=== PATIENT | male | born 1980 | race Caucasian/White ===

== ENCOUNTER 2017-03-29 07:30 | Observation (INO) | payer BC, OTHER ==
[2017-03-29] MEDS ORDERED: SODIUM CHLORIDE 0.9% 1,000 ML IV STA (07:45)
[2017-03-29] MEDS ORDERED: KETOROLAC 30 MG/ML 1 ML VIAL IVP STA ×2 (07:45→10:37)
[2017-03-29] MEDS ORDERED: ONDANSETRON 4 MG/2 ML VIAL IVP STA (07:45)
--- NOTE | 2017-03-29 07:49 | ED ---
Abdominal Pain HPI - General Chief Complaint: Abdominal Pain Stated Complaint: abdominal pain Time Seen by Provider: 03/29/17 07:31 Source: patient, family, RN notes reviewed Mode of arrival: wheelchair Limitations: no limitations - History of Present Illness Initial Comments: This is a 36-year-old male with a prior history kidney stones who states he had the onset last evening around 11:49 PM of lower abdominal pain is very stabbing in nature very severe as bad as 10/10 severity associated with nausea. It has now more localized over to the right flank area. He points to the right lower quadrant and right upper quadrant and in between the areas. He gets somewhat worse with movement he's had nausea no vomiting no fevers chills or sweats no dysuria no hematuria no constipation diarrhea. There is a family history of gallbladder disease with respect to the patient's father. He states this feels different than his previous kidney stone. Pain does not radiate to his genitals. He's had no cough no phlegm production no other symptoms to report. The pain is currently 9/10 in severity. MD Complaint: abdominal pain, flank pain - Related Data Home Medications Medication Instructions Recorded Confirmed Cetirizine HCl [Zyrtec] 10 mg PO DAILY 07/31/14 03/29/17 Albuterol Inhaler [Ventolin Hfa 1 - 2 puff INHALATION RT-QID PRN 03/29/17 Inhaler] Fluticasone Nasal [place] [Flonase 1 spray EA NOSTRIL DAILY PRN 03/29/17 03/29/17 Nasal [place]] Omeprazole [PriLOSEC] 20 mg PO DAILY PRN 03/29/17 03/29/17 Allergies Allergy/AdvReac Type Severity Reaction Status Date / Time latex Allergy Rash/Hives Verified 03/29/17 08:03 Review of Systems ROS Statement: Those systems with pertinent positive or pertinent negative responses have been documented in the HPI. ROS Other: All systems not noted in ROS Statement are negative. Past Medical History Past Medical History: Asthma History of Any Multi-Drug Resistant Organisms: None Reported Past Surgical History: No Surgical Hx Reported Past Psychological History: No Psychological Hx Reported Smoking Status: Never smoker Past Alcohol Use History: Rare Past Drug Use History: None Reported General Exam - General Exam Comments Initial Comments: This is a well-developed well-nourished awake alert oriented 3 male Limitations: no limitations General appearance: alert, anxious, in distress Head exam: Present: atraumatic, normocephalic, normal inspection Eye exam: Present: normal appearance, PERRL, EOMI. Absent: scleral icterus, conjunctival injection, periorbital swelling ENT exam: Present: normal exam, mucous membranes moist Neck exam: Present: normal inspection. Absent: tenderness, meningismus, lymphadenopathy Respiratory exam: Present: normal lung sounds bilaterally. Absent: respiratory distress, wheezes, rales, rhonchi, stridor Cardiovascular Exam: Present: regular rate, normal rhythm, normal heart sounds. Absent: systolic murmur, diastolic murmur, rubs, gallop, clicks GI/Abdominal exam: Present: soft, tenderness (Mild right flank tenderness right upper quadrant tenderness. No guarding or rebound. No McBurney point tenderness at this time. No obturator or Rovsing sign no psoas sign.), normal bowel sounds. Absent: distended, guarding, rebound, rigid Rectal exam: Present: deferred exam: Present: normal inspection Extremities exam: Present: normal inspection, full ROM, normal capillary refill. Absent: tenderness, pedal edema, joint swelling, calf tenderness Back exam: Present: normal inspection, full ROM. Absent: CVA tenderness (R), CVA tenderness (L) Neurological exam: Present: alert, oriented X3, CN II-XII intact Psychiatric exam: Present: normal affect, normal mood Skin exam: Present: warm, dry, intact, normal color. Absent: rash Course Vital Signs 03/29/17 03/29/17 07:32 10:39 Temperature 98.7 F 98.0 F Pulse Rate 80 67 Respiratory 18 16 Rate Blood Pressure 126/68 119/60 O2 Sat by Pulse 99 98 Oximetry - Reevaluation(s) Reevaluation #1: 03/29/17 08:32 Patient is getting some pain relief he still is tender in the right upper quadrant right flank area to palpation no guarding no right lower quadrant tenderness and no CVA tenderness at this time. Ultrasound will be ordered. Patient does relate problems with eating certain foods such as Doritos Medical Decision Making - Medical Decision Making I did discuss findings with the patient initially the presentation was not typical with respect to appendicitis he still does not have McBurney point tenderness. CAT scan is positive hour for appendicitis. I did discuss findings with him and with the surgeon on-call Dr. Alexander who did come to see the patient in the emergency department. Patient will be admitted for a laparoscopic appendectomy. - Lab Data Result diagrams: 03/29/17 07:50 03/29/17 07:50 Lab Results 03/29/17 03/29/17 03/29/17 Range/Units 07:50 07:50 07:50 WBC 12.9 H (3.8-10.6) k/uL RBC 5.15 (4.30-5.90) m/uL Hgb 15.8 (13.0-17.5) gm/dL Hct 43.2 (39.0-53.0) % MCV 83.8 (80.0-100.0) fL MCH 30.7 (25.0-35.0) pg MCHC 36.6 (31.0-37.0) g/dL RDW 13.1 (11.5-15.5) % Plt Count 253 (150-450) k/uL Neutrophils % 82 % Lymphocytes % 11 % Monocytes % 4 % Eosinophils % 1 % Basophils % 0 % Neutrophils # 10.6 H (1.3-7.7) k/uL Lymphocytes # 1.5 (1.0-4.8) k/uL Monocytes # 0.5 (0-1.0) k/uL Eosinophils # 0.1 (0-0.7) k/uL Basophils # 0.0 (0-0.2) k/uL Sodium 142 (137-145) mmol/L Potassium 4.1 (3.5-5.1) mmol/L Chloride 102 (98-107) mmol/L Carbon Dioxide 29 (22-30) mmol/L Anion Gap 11 mmol/L BUN 16 (9-20) mg/dL Creatinine 0.83 (0.66-1.25) mg/dL Est GFR (MDRD) Af Amer >60 (>60 ml/min/1.73 sqM) Est GFR (MDRD) Non-Af >60 (>60 ml/min/1.73 sqM) Glucose 136 H (74-99) mg/dL Calcium 9.6 (8.4-10.2) mg/dL Total Bilirubin 0.6 (0.2-1.3) mg/dL AST 25 (17-59) U/L ALT 39 (21-72) U/L Alkaline Phosphatase 66 (38-126) U/L Total Protein 7.4 (6.3-8.2) g/dL Albumin 4.5 (3.5-5.0) g/dL Amylase 41 (30-110) U/L Lipase 61 (23-300) U/L Urine Color Light Yellow Urine Appearance Cloudy (Clear) Urine pH 8.0 (5.0-8.0) Ur Specific [place] 1.014 (1.001-1.035) Urine Protein Negative (Negative) Urine Glucose (UA) Negative (Negative) Urine Ketones Negative (Negative) Urine Blood Negative (Negative) Urine Nitrite Negative (Negative) Urine Bilirubin Negative (Negative) Urine Urobilinogen <2.0 (<2.0) mg/dL Ur Leukocyte Esterase Negative (Negative) Amorphous Sediment Moderate H (None) /hpf - Radiology Data Radiology results: report reviewed (I did review the imaging and reports ultrasound her nondiagnostic the patient was reevaluated and did have a CAT scan showing acute appendicitis.), image reviewed Disposition Clinical Impression: Acute abdomen, Acute appendicitis Disposition: ADMITTED IP TO THIS [facility] Condition: Stable Referrals: None,Stated [Primary Care Provider] - 1-2 days
[2017-03-29 08:10] LABS: Basophils % (A) 0 %; CH 30.3; CHCM 36.3; Eosinophils # (A) 0.1 k/uL (0-0.7); Eosinophils % (A) 1 %; HCT 43.2 % (39.0-53.0); HDW 2.69; HGB 15.8 gm/dL (13.0-17.5); Luc # (Auto) 0.24; Luc % (Auto) 2; Lymphocytes # (A) 1.5 k/uL (1.0-4.8); Lymphocytes % (A) 11 %; MCH 30.7 pg (25.0-35.0); MCHC 36.6 g/dL (31.0-37.0); MCV 83.8 fL (80.0-100.0); Mean Platelet Volume 7.6; Monocytes # (A) 0.5 k/uL (0-1.0); Monocytes % (A) 4 %; Neutrophils # (A) 10.6 k/uL (1.3-7.7); Neutrophils % (A) 82 %; RBC 5.15 m/uL (4.30-5.90); RDW 13.1 % (11.5-15.5); WBC 12.9 k/uL (3.8-10.6); WBC (Perox) 11.95
[2017-03-29 08:18] LABS: Amorphous Sediment,Urine Moderate /hpf; Appearance,Urine Cloudy (Clear); Bilirubin,Urine Negative (Negative); Glucose,Urine (UA) Negative (Negative); Ketones,Urine Negative (Negative); Leukocyte Esterase,Urine Negative (Negative); Nitrite,Urine Negative (Negative); Particle Count 19474; Protein,Urine Negative (Negative); Specific Gravity,Urine 1.014 (1.001-1.035); UA Billing (MACRO vs. MICRO) MICRO; Urobilinogen,Urine <2.0 mg/dL (<2.0)
--- NOTE | 2017-03-29 08:18 | XR ---
EXAMINATION TYPE: XR KUB DATE OF EXAM: 03/29/2017 CLINICAL DATA: 36-year-old male with right-sided abdominal pain, PHH COMPARISON: None FINDINGS: Lung bases are clear. No evidence for free intraperitoneal air. No dilated small bowel or air-fluid levels. Scattered air and stool seen throughout the colon extendi ng distally into the rectum. Mild stool burden. No suspicious calcifications identified. IMPRESSION: 1. Mild stool burden. 2.No evidence of bowel obstruction or free intraperitoneal air.
[2017-03-29 08:32] LABS: ALT 39 U/L (21-72); AST 25 U/L (17-59); Alkaline Phosphatase 66 U/L (38-126); Amylase 41 U/L (30-110); Anion Gap 11 mmol/L; Blood Urea Nitrogen 16 mg/dL (9-20); Calcium 9.6 mg/dL (8.4-10.2); Carbon Dioxide 29 mmol/L (22-30); Chloride 102 mmol/L (98-107); Glucose 136 mg/dL (74-99); Non-African American GFR(MDRD) >60 (>60 ml/min/1.73 sqM); Potassium 4.1 mmol/L (3.5-5.1); Sodium 142 mmol/L (137-145); Total Bilirubin 0.6 mg/dL (0.2-1.3); Total Protein 7.4 g/dL (6.3-8.2)
--- NOTE | 2017-03-29 11:16 | US ---
EXAMINATION TYPE: US abd limited kidneys/bladder DATE OF EXAM: 03/29/2017 COMPARISON: NONE CLINICAL HISTORY: Pain. EC patient with Right lateral abdomen pain x 9 hours. Ate sausage at 1 am. HX of prior right renal stone that patient stated he passed. EXAM MEASUREMENTS: Liver Length: 12.5 cm Gallbladder Wall: 0.1 cm CBD: 0.3 cm Right Kidney: 11.1 x 5.5 x 4.7 cm Left Kidney: 10.0 x 5.4 x 4.9 cm Pancreas: Obscured by bowel gas Liver: There is no evident mass. Gallbladder: wnl CBD: wnl Right Kidney: wnl Left Kidney: wnl Bladder: wnl Bilateral Jets Seen Yes There is no ascites. The kidneys are morphologically normal, cortical medullary differentiation is maintained. Bilateral u reteral jets are present. IMPRESSION: Limited exam. No significant abnormalities evident.
--- NOTE | 2017-03-29 12:14 | CT ---
EXAMINATION TYPE: CT abdomen pelvis wo con DATE OF EXAM: 03/29/2017 COMPARISON: Ultrasound same date HISTORY: Rt sided pain CT DLP: 327.6 mGycm Automated exposure control for dose reduction was used. TECHNIQUE: Helical acquisition of images from the lung bases through the pelvis. FINDINGS: LUNG BASES: No significant abnormality is appreciated. AORTA: No significant abnormality is appreciated. LIVER/GB: No significant abnormality is appreciated. PANCREAS: No significant abnormality is seen. SPLEEN: Calcifications present likely indicative of granulomas. ADRENALS: No significant abnormality is seen. KIDNEYS: Punctate nonobstructive calculus present in the midpole the left kidney. No hydronephrosis b ilaterally. REPRODUCTIVE ORGANS: No significant abnormality is seen. URINARY BLADDER: No significant abnormality is seen. BOWEL: There is abnormal thickening of the appendix. Periappendiceal inflammatory changes present. T here is luminal high attenuation compatible with appendicolith. FREE AIR: No Free Air is visible. ASCITES: None visible. PELVIC ADENOPATHY: None visualized. RETROPERITONEAL ADENOPATHY: No Retroperitoneal Adenopathy visible. OSSEOUS STRUCTURES: No significant abnormality is seen. IMPRESSION: FINDINGS COMPATIBLE WITH ACUTE APPENDICITIS.
--- NOTE | 2017-03-29 12:59 | P.GSHP ---
History of Present Illness H&P Date: 03/29/17 CHIEF COMPLAINT: Right lower quadrant abdominal pain with appendicitis for for over 12 hrs. HISTORY OF PRESENT ILLNESS: The patient is a previously healthy 36-year-old male who presents over 12 hr day history of right lower quadrant abdominal pain that started last night. He states the intensity of the pain is mild to moderate. He presented with elevated WBC with studies consistent with appendicitis hence general surgery consultation. PAST MEDICAL HISTORY: Denies Severe post-op nausea PAST SURGICAL HISTORY: See list. CURRENT MEDICATIONS: See list. ALLERGIES: See list. SOCIAL HISTORY: Social alcohool use.Tobacco use. FAMILY HISTORY: Denies Crohns disease and ulcerative colitis. REVIEW OF ORGAN SYSTEMS: CONSTITUTIONAL: Denies any fever or chills. Denies recent weight loss. HEENT: Denies any trouble with vision, hearing or nosebleeds. No difficulty swallowing. LYMPHATIC: The patient denies any lumps and bumps around the neck. ENDOCRINE: Denies any thyroid disorders. Denies any blood sugar glucose intolerance. RESPIRATORY: Denies shortness of breath including chronic cough. CARDIOVASCULAR: Denies history of chest pain with exertion. GASTROINTESTINAL: Denies regurgitation of bile at night as well as intermittent nausea. No blood in stools. GENITOURINARY: Denies any blood in urine or increased urinary frequency. MUSCULOSKELETAL: Denies current joint arthritis. NEUROLOGIC: Denies any numbness or tingling along the distal extremities. No seizure disorders or headaches. PSYCHIATRIC: Denies any depression or suicidal ideation. HEMATOLOGIC: Denies any abnormal bleeding or bruising. PHYSICAL EXAMINATION: Vital signs: Vital Signs Temp 98.0 F 03/29/17 10:39 Pulse 67 03/29/17 10:39 Resp 16 03/29/17 10:39 BP 119/60 03/29/17 10:39 Pulse Ox 98 03/29/17 10:39 Intake & Output 03/28/17 03/29/17 03/29/17 18:59 06:59 18:59 Weight 76.204 kg GENERAL: Well developed and in no acute distress. Pleasant. HEENT: No sclera icterus. Extraocular movements grossly intact. Moist buccal mucosa. Head is atraumatic, normocephalic. Hears conversational speech. No nasal drainage. NECK: Supple without lymphadenopathy. No JV distention. CHEST: Non-labored respirations and equal bilateral excursions. CARDIOVASCULAR: Regular rate and rhythm. Palpable 2+ radial pulses. ABDOMEN: Soft, tender at the right lower quadrant without guarding. MUSCULOSKELETAL: No clubbing, cyanosis or edema. NEUROLOGIC: No focal or lateralizing signs. PSYCH: Appropriate affect. Alert and oriented to person, place and time. LABS: Laboratory Last Values WBC 12.9 k/uL (3.8-10.6) H 03/29/17 07:50 RBC 5.15 m/uL (4.30-5.90) 03/29/17 07:50 Hgb 15.8 gm/dL (13.0-17.5) 03/29/17 07:50 Hct 43.2 % (39.0-53.0) 03/29/17 07:50 MCV 83.8 fL (80.0-100.0) 03/29/17 07:50 MCH 30.7 pg (25.0-35.0) 03/29/17 07:50 MCHC 36.6 g/dL (31.0-37.0) 03/29/17 07:50 RDW 13.1 % (11.5-15.5) 03/29/17 07:50 Plt Count 253 k/uL (150-450) 03/29/17 07:50 Neutrophils % 82 % 03/29/17 07:50 Lymphocytes % 11 % 03/29/17 07:50 Monocytes % 4 % 03/29/17 07:50 Eosinophils % 1 % 03/29/17 07:50 Basophils % 0 % 03/29/17 07:50 Neutrophils # 10.6 k/uL (1.3-7.7) H 03/29/17 07:50 Lymphocytes # 1.5 k/uL (1.0-4.8) 03/29/17 07:50 Monocytes # 0.5 k/uL (0-1.0) 03/29/17 07:50 Eosinophils # 0.1 k/uL (0-0.7) 03/29/17 07:50 Basophils # 0.0 k/uL (0-0.2) 03/29/17 07:50 Sodium 142 mmol/L (137-145) 03/29/17 07:50 Potassium 4.1 mmol/L (3.5-5.1) 03/29/17 07:50 Chloride 102 mmol/L (98-107) 03/29/17 07:50 Carbon Dioxide 29 mmol/L (22-30) 03/29/17 07:50 Anion Gap 11 mmol/L 03/29/17 07:50 BUN 16 mg/dL (9-20) 03/29/17 07:50 Creatinine 0.83 mg/dL (0.66-1.25) 03/29/17 07:50 Est GFR (MDRD) Af Amer >60 (>60 ml/min/1.73 sqM) 03/29/17 07:50 Est GFR (MDRD) Non-Af >60 (>60 ml/min/1.73 sqM) 03/29/17 07:50 Glucose 136 mg/dL (74-99) H 03/29/17 07:50 Calcium 9.6 mg/dL (8.4-10.2) 03/29/17 07:50 Total Bilirubin 0.6 mg/dL (0.2-1.3) 03/29/17 07:50 AST 25 U/L (17-59) 03/29/17 07:50 ALT 39 U/L (21-72) 03/29/17 07:50 Alkaline Phosphatase 66 U/L (38-126) 03/29/17 07:50 Total Protein 7.4 g/dL (6.3-8.2) 03/29/17 07:50 Albumin 4.5 g/dL (3.5-5.0) 03/29/17 07:50 Amylase 41 U/L (30-110) 03/29/17 07:50 Lipase 61 U/L (23-300) 03/29/17 07:50 Urine Color Light Yellow 03/29/17 07:50 Urine Appearance Cloudy (Clear) 03/29/17 07:50 Urine pH 8.0 (5.0-8.0) 03/29/17 07:50 Ur Specific [place] 1.014 (1.001-1.035) 03/29/17 07:50 Urine Protein Negative (Negative) 03/29/17 07:50 Urine Glucose (UA) Negative (Negative) 03/29/17 07:50 Urine Ketones Negative (Negative) 03/29/17 07:50 Urine Blood Negative (Negative) 03/29/17 07:50 Urine Nitrite Negative (Negative) 03/29/17 07:50 Urine Bilirubin Negative (Negative) 03/29/17 07:50 Urine Urobilinogen <2.0 mg/dL (<2.0) 03/29/17 07:50 Ur Leukocyte Esterase Negative (Negative) 03/29/17 07:50 Amorphous Sediment Moderate /hpf (None) H 03/29/17 07:50 STUDIES: CT of the abdomen and pelvis reviewed with findings consistent with appendicitis. ASSESSMENT: 1. Right lower quadrant pain. 2. Appendicitis. 3. Leukocytosis. 4. Family history gallbladder disease. PLAN: 1. I have discussed benefits and risks of laparoscopic appendectomy. 2. He has a family history of gallbladder disease which we will monitor. 3. Antibiotics. 4. DVT prophylaxis with heparin. 5. GI prophylaxis. 6. Off work restrictions and recovery anticipated for 1 weeks. Thank you very much for allowing me to participate in the care of your patient. Past Medical History Past Medical History: Asthma History of Any Multi-Drug Resistant Organisms: None Reported Past Surgical History: No Surgical Hx Reported Past Psychological History: No Psychological Hx Reported Smoking Status: Never smoker Past Alcohol Use History: Rare Past Drug Use History: None Reported Medications and Allergies Home Medications Medication Instructions Recorded Confirmed Type Cetirizine HCl [Zyrtec] 10 mg PO DAILY 07/31/14 03/29/17 History Albuterol Inhaler [Ventolin Hfa 1 - 2 puff INHALATION RT-QID PRN 03/29/17 History Inhaler] Fluticasone Nasal [place] [Flonase 1 spray EA NOSTRIL DAILY PRN 03/29/17 03/29/17 History Nasal [place]] Omeprazole [PriLOSEC] 20 mg PO DAILY PRN 03/29/17 03/29/17 History Allergies Allergy/AdvReac Type Severity Reaction Status Date / Time latex Allergy Rash/Hives Verified 03/29/17 08:03 Surgical - Exam Vital Signs Temp Pulse Resp BP Pulse Ox 98.7 F 80 18 126/68 99 03/29/17 07:32 03/29/17 07:32 03/29/17 07:32 03/29/17 07:32 03/29/17 07:32 Results - Labs 03/29/17 07:50 03/29/17 07:50 Abnormal Lab Results - Last 24 Hours (Table) 03/29/17 03/29/17 03/29/17 Range/Units 07:50 07:50 07:50 WBC 12.9 H (3.8-10.6) k/uL Neutrophils # 10.6 H (1.3-7.7) k/uL Glucose 136 H (74-99) mg/dL Amorphous Sediment Moderate H (None) /hpf Diabetes panel 03/29/17 Range/Units 07:50 Sodium 142 (137-145) mmol/L Potassium 4.1 (3.5-5.1) mmol/L Chloride 102 (98-107) mmol/L Carbon Dioxide 29 (22-30) mmol/L BUN 16 (9-20) mg/dL Creatinine 0.83 (0.66-1.25) mg/dL Glucose 136 H (74-99) mg/dL Calcium 9.6 (8.4-10.2) mg/dL AST 25 (17-59) U/L ALT 39 (21-72) U/L Alkaline Phosphatase 66 (38-126) U/L Total Protein 7.4 (6.3-8.2) g/dL Albumin 4.5 (3.5-5.0) g/dL Calcium panel 03/29/17 Range/Units 07:50 Calcium 9.6 (8.4-10.2) mg/dL Albumin 4.5 (3.5-5.0) g/dL Pituitary panel 03/29/17 Range/Units 07:50 Sodium 142 (137-145) mmol/L Potassium 4.1 (3.5-5.1) mmol/L Chloride 102 (98-107) mmol/L Carbon Dioxide 29 (22-30) mmol/L BUN 16 (9-20) mg/dL Creatinine 0.83 (0.66-1.25) mg/dL Glucose 136 H (74-99) mg/dL Calcium 9.6 (8.4-10.2) mg/dL Adrenal panel 03/29/17 Range/Units 07:50 Sodium 142 (137-145) mmol/L Potassium 4.1 (3.5-5.1) mmol/L Chloride 102 (98-107) mmol/L Carbon Dioxide 29 (22-30) mmol/L BUN 16 (9-20) mg/dL Creatinine 0.83 (0.66-1.25) mg/dL Glucose 136 H (74-99) mg/dL Calcium 9.6 (8.4-10.2) mg/dL Total Bilirubin 0.6 (0.2-1.3) mg/dL AST 25 (17-59) U/L ALT 39 (21-72) U/L Alkaline Phosphatase 66 (38-126) U/L Total Protein 7.4 (6.3-8.2) g/dL Albumin 4.5 (3.5-5.0) g/dL
[2017-03-29] MEDS ORDERED: HYDROmorphone 1 MG/ML 1 ML SYRINGE IVP STA (13:48)
[2017-03-29] MEDS ORDERED: ceFAZolin 2 GM in SODIUM CHLORIDE 0.9% 100 ML IVPB ONE (18:31)
[2017-03-29] MEDS ORDERED: ACETAMINOPHEN IV (For NPO) 1,000 MG in EMPTY BAG 1 BAG IVPB STA (18:31)
--- NOTE | 2017-03-29 18:31 | P.HPADDEND ---
H&P Addendum H&P Addendum Date: 03/29/17 Family is at bedside. Patient had additional concerns regarding inflating of the abdomen and shoulder pain. All of his questions were addressed. We'll proceed with laparoscopic appendectomy.
[2017-03-29] MEDS ORDERED: HYDROmorphone 1 MG/ML 1 ML SYRINGE IVP PRN (18:32)
[2017-03-29] MEDS ORDERED: ONDANSETRON 4 MG/2 ML VIAL IVP PRN (18:32)
[2017-03-29] MEDS ORDERED: HEPARIN SODIUM,PORCINE 5,000 UNIT/ML 1 ML VIAL SQ STA (18:33)
[2017-03-29] MEDS ORDERED: GLYCOPYRROLATE 0.2 MG/ML 2 ML VIAL ONE (18:45)
[2017-03-29] MEDS ORDERED: MIDAZOLAM 2 MG/2 ML VIAL ONE (18:45)
[2017-03-29] MEDS ORDERED: NEOSTIGMINE 1 MG/ML 10 ML VIAL ONE (18:45)
[2017-03-29] MEDS ORDERED: IV FLUID CONTINUATION 1,000 ML IV ONE (18:45)
[2017-03-29] MEDS ORDERED: LIDOCAINE 1% INJ 10MG/ML (20 ML MDV) ONE (18:45)
[2017-03-29] MEDS ORDERED: ONDANSETRON 4 MG/2 ML VIAL ONE (18:45)
[2017-03-29] MEDS ORDERED: fentaNYL (PF) 50 MCG/ML 2 ML AMP ONE (18:45)
[2017-03-29] MEDS ORDERED: SUCCINYLCHOLINE CHLORIDE 100 MG/5 ML SYR IV ONE (18:45)
[2017-03-29] MEDS ORDERED: ROCURONIUM BROMIDE 10 MG/ML 10 ML VIAL IV ONE (18:45)
[2017-03-29] MEDS ORDERED: HYDROmorphone (PF) 1 MG/ML ONE (18:45)
[2017-03-29] MEDS ORDERED: PROPOFOL 10 MG/ML 20 ML VIAL IV ONE (18:45)
[2017-03-29] MEDS ORDERED: BUPIVACAIN-EPI 0.25%-1:200,000 30 ML VIAL SQ ONE ×2 (18:50→19:10)
[2017-03-29] MEDS ORDERED: BUPIVACAIN-EPI 0.5%-1:200,000 30 ML VIAL SQ ONE (19:53)
--- NOTE | 2017-03-29 20:19 | P.OP ---
Date of Procedure: 03/29/17 Preoperative Diagnosis: Postoperative Diagnosis: Procedure(s) Performed: Implants: Indications for Procedure: Operative Findings: Description of Procedure: SURGEON: QUAN ARTHUR MD ELECTRIC TRAIN DRIVER: None. PREOPERATIVE DIAGNOSES: 1. Right lower quadrant abdominal pain. 2. Acute appendicitis. 3. Leukocytosis. POSTOPERATIVE DIAGNOSES: 1. Right lower quadrant abdominal pain. 2. Acute appendicitis. 3. Leukocytosis. 4. Retrocecal acute appendicitis with periappendicitis, without rupture. PROCEDURES PERFORMED: 1. Diagnostic laparoscopy. 2. Laparoscopic appendectomy. ANESTHESIA: General with 30 mL 0.50% Marcaine with epinephrine. ESTIMATED BLOOD LOSS: 20 mL. SPECIMENS REMOVED: Appendix. COMPLICATIONS: None. OPERATIVE FINDINGS: 1. Acute appendicitis with periappendicitis affecting mental distal appendix without rupture. 2. Unremarkable small bowel and terminal ileum. 3. Liver unremarkable. 4. The colon was unremarkable 5. Gallbladder unremarkable. 6. Retrocecal appendix coiled to the right upper quadrant and right lower quadrant. INDICATIONS: The patient is a 36-year-old male who presents with less than a 24-hour history of right lower quadrant abdominal pain. He reported nausea, including anorexia. He had studies consistent with with acute appendicitis. Benefits and risks, including possibility of open technique were described at length. Informed consent was obtained. DESCRIPTION OR PROCEDURE: Patient was brought to the operating room, laid in supine position. After general induction, the abdomen was prepped and draped in standard sterile fashion. Prior to incision, a timeout protocol was confirmed with surgical team regarding patient's name including procedure to be performed. Preoperative medications were given intraoperatively. Additionally, bilateral SCDs including heparin 5000 units was administered. A transverse infraumbilical incision was made after localizing the skin with anesthetic. A 0 degree 12 mm laparoscopic trocar entry was performed and entered into the peritoneal cavity. The abdomen was insufflated to 15 mmHg of pressure, which he tolerated well. Diagnostic laparoscopy demonstrated no injury to bowel, viscera or mesentery. Additionally, along the pelvis was free fluid with mild turbidity. A 5 mm port was placed just above the pubis. A separate 5 mm port was placed at the left upper quadrant all under direct visualization. The patient was placed in Trendelenburg position with the right side up. A systematic view within the abdominal cavity was started with the small bowel which was unremarkable. The gallbladder was unremarkable. The base of the cecum was without inflammation. The mid to distal appendix was dilated consistent with acute appendicitis including periappendicitis. Appendix was retrocecal initially ascending to the gallbladder and then coiling back into the right lower quadrant. Moderate dissection was performed to free the appendix from the right lower quadrant and advancing to the right flank. A 60 mm Endo SERGE echelon stapler was fired using a napier vascular load. A staple load was used for complete division of the base of the appendix. Mild arterial bleed was encountered and controlled using Sonicision A sponge was used to absorb all blood. The staple line was completely hemostatic. The specimen was removed from the abdominal cavity with a Endo Catch bag through the 12 mm trocar. All instruments and pneumoperitoneum were evacuated from the abdominal cavity. The fascial defect was reapproximated using 0 Vicryl in a figure-of-8 fashion. The size of the appendix was over 10 cm x 8 mm, quite large. A total of 30 mL 0.50 % Marcaine with epinephrine was infiltrated in all wounds for postop analgesia. Dermabond was applied to the skin after reapproximating the incisions with 4-0 Monocryl as described. At the end of the procedure, needle, sponge, and instrument count was verified correct by account technician. The patient had tolerated the procedure well, was taken to the postanesthesia care unit in stable condition. Intraoperative abdominal films were reviewed with the patient's family.
[2017-03-29] MEDS ORDERED: HYDROcodone/APAP 5-325MG 1 EACH TAB PO PRN (20:31)
[2017-03-29] MEDS ORDERED: NALOXONE 0.4 MG/ML 1 ML VIAL IV PRN (20:31)
[2017-03-29] MEDS: HYDROmorphone 1 MG/ML 1 ML SYRINGE IVP ONE ×2 (20:37→20:42)
[2017-03-29] MEDS ORDERED: METOCLOPRAMIDE 5 MG/ML 2 ML VIAL IVP ONE (20:54)
[2017-03-29] MEDS ORDERED: SODIUM CHLORIDE 0.9% 1,000 ML IV ONE (21:33)
[2017-03-30] MEDS: HEPARIN SODIUM,PORCINE 5,000 UNIT/ML 1 ML VIAL SQ SCH ×2 (00:35→08:44)
[2017-03-30] MEDS: KETOROLAC 30 MG/ML 1 ML VIAL IVP SCH ×3 (00:35→08:35)
[2017-03-30] MEDS: AMPICILLIN-SULBACTAM 3 GM in SODIUM CHLORIDE 0.9% 100 ML IVPB SCH ×2 (00:36→06:18)
[2017-03-30] MEDS: LORATADINE 10 MG TAB PO SCH ×2 (01:43→08:44)
[2017-03-30 05:59] VITALS: RESP 18
[2017-03-30 06:44] LABS: Basophils % (A) 0 %; CH 29.7; CHCM 34.7; Eosinophils % (A) 0 %; HCT 38.6 % (39.0-53.0); HDW 2.64; HGB 13.8 gm/dL (13.0-17.5); Luc # (Auto) 0.22; Luc % (Auto) 3; Lymphocytes % (A) 13 %; MCH 30.7 pg (25.0-35.0); MCHC 35.7 g/dL (31.0-37.0); MCV 86.1 fL (80.0-100.0); Monocytes # (A) 0.4 k/uL (0-1.0); Monocytes % (A) 4 %; Neutrophils # (A) 6.2 k/uL (1.3-7.7); Neutrophils % (A) 79 %; RBC 4.48 m/uL (4.30-5.90); RDW 12.9 % (11.5-15.5); WBC 7.9 k/uL (3.8-10.6); WBC (Perox) 8.05
[2017-03-30 07:39] VITALS: BP 126/71; PULSE 68; TEMP 98.3
[2017-03-30] MEDS ORDERED: NON-FORMULARY DRUG (Cetirizine Hcl [Zyrtec] 10 MG) PO SCH (09:00)
--- NOTE | 2017-04-01 13:07 | P.PN ---
Subjective Principal diagnosis: Acute appendicitis Patient doing wall. Pain is controlled. He denies any severe post-op nausea or vomiting. Objective - Vital Signs Vital signs: Vital Signs Temp 98.3 F 03/30/17 07:38 Pulse 68 03/30/17 08:00 Resp 18 03/30/17 08:00 BP 126/71 03/30/17 07:38 Pulse Ox 96 03/30/17 07:38 Intake & Output 03/29/17 03/30/17 03/30/17 18:59 06:59 18:59 Intake Total 500 500 Output Total 20 Balance 500 480 Weight 75.9 kg Intake: IV 500 500 Output: Estimated Blood Loss 20 Other: Voiding Method Toilet Urinal Urinal # Voids 1 1 - Exam GENERAL: Well developed and in no acute distress. Pleasant. HEENT: No sclera icterus. Extraocular movements grossly intact. Moist buccal mucosa. Head is atraumatic, normocephalic. Hears conversational speech. No nasal drainage. NECK: Supple without lymphadenopathy. No JV distention. CHEST: Non-labored respirations and equal bilateral excursions. CARDIOVASCULAR: Regular rate and rhythm. Palpable 2+ radial pulses. ABDOMEN: Soft, decreased right lower quadrant tenderness. Dressing, clean, dry and intact. NEUROLOGIC: No focal or lateralizing signs. PSYCH: Appropriate affect. Alert and oriented to person, place and time. - Labs CBC & Chem 7: 03/30/17 05:37 03/29/17 07:50 Labs: Abnormal Lab Results - Last 24 Hours (Table) 03/30/17 Range/Units 05:37 Hct 38.6 L (39.0-53.0) % Assessment and Plan (1) Leukocytosis Status: Acute (2) Asthma Status: Chronic (3) Right lower quadrant abdominal pain Status: Acute (4) Gastroesophageal reflux disease Status: Chronic (5) Acute abdomen Status: Acute (6) Acute appendicitis Status: Acute Plan: 1. He is clinically stable for discharge today. 2. Recommend off work at least 7 to 10 days. 3. Follow-up in office in 5 to 7 days.
--- NOTE | 2017-04-01 13:12 | P.DS ---
Providers Date of admission: 03/29/17 12:42 Expected date of discharge: 03/30/17 Attending physician: Mary Jo Bruno Primary care physician: Stated None - Discharge Diagnosis(es) (1) Acute abdomen Status: Acute (2) Acute appendicitis Status: Acute (3) Leukocytosis Status: Acute (4) Right lower quadrant abdominal pain Status: Acute (5) Asthma Status: Chronic (6) Gastroesophageal reflux disease Status: Chronic Hospital Course: CHIEF COMPLAINT: Right lower quadrant abdominal pain with appendicitis for for over 12 hrs. COURSE: The patient is a previously healthy 36-year-old male who presents over 12 hr day history of right lower quadrant abdominal pain that started last night. He states the intensity of the pain is mild to moderate. He presented with elevated WBC with studies consistent with appendicitis hence general surgery consultation. He underwent appendectomy with findings consistent with non- perforated acute appendicitis with delfina-appendicitis. Post-op, his WBC resolved. He was stable for discharge. Pertinent Studies: CT of the abdomen consistent with appendicitis. US gallbladder no acute cholecystitis. Procedures: POSTOPERATIVE DIAGNOSES: 1. Right lower quadrant abdominal pain. 2. Acute appendicitis. 3. Leukocytosis. 4. Retrocecal acute appendicitis with periappendicitis, without rupture. PROCEDURES PERFORMED: 1. Diagnostic laparoscopy. 2. Laparoscopic appendectomy. Patient Condition at Discharge: Stable Plan - Discharge Summary New Discharge Prescriptions: New Hydrocodone/Acetaminophen [[place] 5-325] 1 each PO Q4HR PRN #15 tab PRN Reason: Pain No Action Cetirizine HCl [Zyrtec] 10 mg PO DAILY Omeprazole [PriLOSEC] 20 mg PO DAILY PRN PRN Reason: Heartburn Fluticasone Nasal [place] [Flonase Nasal Bagley] 1 spray EA NOSTRIL DAILY PRN PRN Reason: Allergy Symptoms Albuterol Inhaler [Ventolin Hfa Inhaler] 1 - 2 puff INHALATION RT-QID PRN PRN Reason: Shortness Of Breath Discharge Medication List Cetirizine HCl [Zyrtec] 10 mg PO DAILY 07/31/14 [History] Albuterol Inhaler [Ventolin Hfa Inhaler] 1 - 2 puff INHALATION RT-QID PRN [History] Fluticasone Nasal [place] [Flonase Nasal [place]] 1 spray EA NOSTRIL DAILY PRN 03/29 [History] Omeprazole [PriLOSEC] 20 mg PO DAILY PRN 03/29/17 [History] Hydrocodone/Acetaminophen [[place] 5-325] 1 each PO Q4HR PRN #15 tab 03/30/17 [Rx] Follow up Appointment(s)/Referral(s): Mary Jo Bruno MD [STAFF PHYSICIAN] - 04/04/17 None,Stated [Primary Care Provider] - 1-2 days Patient Instructions/Handouts: Laparoscopic Appendectomy (DC) Activity/Diet/Wound Care/Special Instructions: No bathtub soaks. May shower tomorrow. No lifting over 4 pounds in 1 week. Discharge Disposition: HOME SELF-CARE
== END 2017-03-30 11:00 | disposition home or self-care (01) ==
LOC: EC 07:30 → 3OBS 12:42
PROVIDERS: ADMIT Surgery Plastic and Reconstructive Surgery; ATTEND Surgery Plastic and Reconstructive Surgery
DX: K35.80 Unspecified acute appendicitis (principal); K21.9 Gastro-esophageal reflux disease without esophagitis; J45.909 Unspecified asthma, uncomplicated; Z87.442 Personal history of urinary calculi; Z91.040 Latex allergy status; Z83.79 Family history of other diseases of the digestive system
CPT/HCPCS: 96375 ×4; 96376 ×2; 99285 ×2; 44970; 96361; 96374; 36415; 88304; 80053; 82150; 83690; 85025 ×2; 81001; 74000; 76705; 76770; 74176; G0378 ×2; J2250; J1644; J2710; J2765; J0690; J2405 ×2; J2001; J3010; J1885 ×2; J1170; J0295; J0330; J2704

== ENCOUNTER 2020-06-03 15:49 | Emergency (ER) | payer BC ==
--- NOTE | 2020-06-03 16:33 | XR ---
EXAMINATION TYPE: XR chest 2V DATE OF EXAM: 06/03/2020 COMPARISON: Chest x-ray July 27, 2013 HISTORY: Left-sided chest pain. TECHNIQUE: Frontal and lateral views of the chest are obtained. FINDINGS: Overlying EKG leads. There is no focal air space opacity, pleural effusion, or pneumothorax seen. The cardiac silhouette size is within normal limits. The osseous structures are intact. IMPRESSION: No acute cardiopulmonary process. No significant change from prior.
[2020-06-03 16:42] LABS: ALT 22 U/L (4-49); AST 20 U/L (17-59); African American GFR (CKD) >90 (>60 ml/min/1.73 sqM); Albumin 4.9 g/dL (3.5-5.0); Alkaline Phosphatase 66 U/L (38-126); Anion Gap 6 mmol/L; Blood Urea Nitrogen 20 mg/dL (9-20); Calcium 9.8 mg/dL (8.4-10.2); Carbon Dioxide 31 mmol/L (22-30); Chloride 103 mmol/L (98-107); Glucose 106 mg/dL (74-99); Non-African American GFR(CKD) >90 (>60 ml/min/1.73 sqM); Potassium 4.5 mmol/L (3.5-5.1); Sodium 140 mmol/L (137-145); Total Bilirubin 0.8 mg/dL (0.2-1.3); Total Protein 7.9 g/dL (6.3-8.2)
[2020-06-03 16:47] LABS: Basophils % (A) 1 %; D-Dimer 0.24 mg/L FEU (<0.60); Eosinophils % (A) 1 %; HCT 46.6 % (39.0-53.0); HGB 15.4 gm/dL (13.0-17.5); Lymphocytes # (A) 1.2 k/uL (1.0-4.8); Lymphocytes % (A) 30 %; MCH 28.6 pg (25.0-35.0); MCV 86.8 fL (80.0-100.0); Mean Platelet Volume 7.6; Monocytes # (A) 0.3 k/uL (0-1.0); Monocytes % (A) 6 %; Neutrophils # (A) 2.4 k/uL (1.3-7.7); Neutrophils % (A) 58 %; Partial Thromboplastin Time 24.7 sec (22.0-30.0); Platelet Count 252 k/uL (150-450); Prothrombin Time 10.2 sec (9.0-12.0); RBC 5.37 m/uL (4.30-5.90); RDW 12.5 % (11.5-15.5); WBC 4.1 k/uL (3.8-10.6)
--- NOTE | 2020-06-03 16:59 | US ---
EXAMINATION TYPE: US abdomen limited DATE OF EXAM: 06/03/2020 COMPARISON: NONE CLINICAL HISTORY: right upper quadrant. abd pain EXAM MEASUREMENTS: Liver Length: 13.5 cm Gallbladder Wall: 0.2 cm CBD: 0.6 cm Right Kidney: 10.0 x 4.4 x 5.1 cm Pancreas: Obscured by bowel gas Liver: wnl Gallbladder: wnl Evidence for sonographic Sanderson's sign: No CBD: wnl Right Kidney: No hydronephrosis or masses seen IMPRESSION: Negative exam. No gallstones or dilated ducts. No free fluid.
[2020-06-03 17:21] VITALS: RESP 12
--- NOTE | 2020-06-03 18:02 | ED ---
Chest Pain HPI - General Chief Complaint: Chest Pain Stated Complaint: abd/chest pain Source: patient Mode of arrival: ambulatory Limitations: no limitations - History of Present Illness Initial Comments: 39-year-old male with past history of nephrolithiasis who presents emergency room with reported epigastric abdominal pain. Patient reports that his symptoms have been present since March. They're intermittent in nature. States that his pain is most severe approximate one hour after eating. Denies history of peptic ulcer disease. Reports to significant is the Pepto. Denies use of any NSAIDs. No alcohol use. He denies any associated shortness of breath. No fevers or chills. Denies ripping or tearing sensation to his back. No family history of premature cardiac . Denies vomiting. Admits to nausea. No constipation, diarrhea, melenic stools or hematochezia. No dysuria, hematuria or voiding. He did follow up with his primary care physician in regards to his symptoms. They put him on omeprazole recommended that he see GI. Reports his appointment isn't until June. Decided to come to the emergency room for further evaluation. No other alleviating, precipitating or modifying factors - Related Data Home Medications Medication Instructions Recorded Confirmed Cetirizine HCl 10 mg PO DAILY 06/03/20 06/03/20 Omeprazole Magnesium [PriLOSEC OTC] 20 mg PO DAILY 06/03/20 06/03/20 Previous Rx's Medication Instructions Recorded Sucralfate [Carafate] 1 gm PO ACHS #28 tablet 06/03/20 Allergies Allergy/AdvReac Type Severity Reaction Status Date / Time latex Allergy Rash/Hives Verified 06/03/20 17:50 Review of Systems ROS Statement: Those systems with pertinent positive or pertinent negative responses have been documented in the HPI. ROS Other: All systems not noted in ROS Statement are negative. EKG Findings - EKG Comments: EKG Findings:: EKG demonstrates normal sinus rhythm with a ventricular rate of 62. CO interval 126. QRS 84. QTC of 321. No acute ST segment elevations or depressions concerning for ischemic changes Past Medical History Past Medical History: Asthma, GERD/Reflux, Renal Disease Additional Past Medical History / Comment(s): Contact urticaria, gastritis, nephrolithiasis-passed stones on his own, seasonal allergies. History of Any Multi-Drug Resistant Organisms: None Reported Past Surgical History: Appendectomy Past Anesthesia/Blood Transfusion Reactions: Unable to Obtain Additional Past Anesthesia/Blood Transfusion Reaction / Comment(s): Pt has never had any surgical procedures. Past Psychological History: No Psychological Hx Reported Smoking Status: Never smoker Past Alcohol Use History: Rare Past Drug Use History: None Reported - Past Family History Father Family Medical History: Diabetes Mellitus Additional Family Medical History / Comment(s): Father had gallbladder disease and appendicitis. Mother Additional Family Medical History / Comment(s): Mother has back problems. General Exam Limitations: no limitations Course Vital Signs 06/03/20 06/03/20 06/03/20 15:51 16:27 17:19 Temperature 98.2 F Pulse Rate 66 66 62 Respiratory 16 18 12 Rate Blood Pressure 128/76 138/82 126/85 O2 Sat by Pulse 100 99 98 Oximetry 06/03/20 18:21 Temperature 98.1 F Pulse Rate 69 Respiratory 12 Rate Blood Pressure 125/87 O2 Sat by Pulse 97 Oximetry Chest Pain MDM - MDM On arrival the patient was placed in room 15. Throat history of physical exam is performed. Peripheral IV is established. Laboratory studies were conducted. EKG is performed. Chest x-rays performed. Laboratory studies are all remarkable. Troponin and d-dimer are negative. Chest x-ray demonstrates no acute intrathoracic process. Abdominal ultrasound demonstrates no gallstones or dilated ducts. No free fluid. I discussed diagnosis, treatment options. At this time the patient will be discharged home. He is given a prescription for Carafate. He is to call his primary care doctor and he within 2-4 days for reevaluation. I also agree to check evaluation with EGD, colonoscopy and possible HIDA scan. The patient will benefit from an echo. He is to return to the emergency room for any new or worsening symptoms. Patient then discharged home in stable condition Disposition Clinical Impression: Epigastric pain Disposition: HOME SELF-CARE Condition: Stable Instructions (If sedation given, give patient instructions): Epigastric Pain (ED) Additional Instructions: I recommend HIDA scan, endoscopy and an echo of your heart. Take the Carafate as directed. Follow-up with your primary care doctor within 2-4 days. Return to the emergency room for any new or worsening symptoms Prescriptions: Sucralfate [Carafate] 1 gm PO ACHS #28 tablet Is patient prescribed a controlled substance at d/c from ED?: No Referrals: Nichol Butcher DO [Primary Care Provider] - 1-2 days Marilyn Haywood MD [STAFF PHYSICIAN] - 1-2 days Time of Disposition: 18:02
[2020-06-03 18:22] VITALS: BP 125/87; PULSE 69; TEMP 98.1
== END 2020-06-03 18:23 | disposition home or self-care (01) ==
LOC: EC 15:49
DX: R10.13 Epigastric pain (principal); R07.9 Chest pain, unspecified; K21.9 Gastro-esophageal reflux disease without esophagitis; Z79.899 Other long term (current) drug therapy; Z91.040 Latex allergy status
CPT/HCPCS: 36415; 71046; 76705; 80053; 83690; 83735; 83880; 84484; 85025; 85379; 85610; 85730; 93005; 99285

== ENCOUNTER 2020-06-05 15:55 | Emergency (ER) | payer BC ==
[2020-06-05 16:07] VITALS: RESP 16
[2020-06-05] MEDS ORDERED: MORPHINE SULFATE 4 MG/ML SYRINGE IV STA (16:25)
--- NOTE | 2020-06-05 16:31 | ED ---
General Adult HPI - General Chief complaint: Abdominal Pain Stated complaint: Chest and abd pain Time Seen by Provider: 06/05/20 16:15 Source: patient Mode of arrival: ambulatory Limitations: no limitations - History of Present Illness Initial comments: Dictation was produced using [employer] dictation software. please excuse any grammatical, word or spelling errors. This patient was cared for during a federal and state declared state of emergency secondary to Covid 19 Chief Complaint: 39-year-old male presents to the emergency department for chest and abdominal pain. History of Present Illness: She is a 39-year-old male presents today with chest and abdominal pain. Patient states his symptoms have been ongoing for several weeks now he was seen here in emergency department on 06/03/2020 which was 2 days ago. He was evaluated at that time. He is evaluated and found to have no significant processes. Does have a history of kidney stones. He had ultrasound and blood tests performed showing no acute processes. Patient states he's been having these symptoms for several weeks now. States that today the pain was recurrent and fairly severe so he decided come back to the emergency department. Patient has any fever, chills or night sweats. He denies any postprandial symptoms. No diarrhea. States that the center of his pain is to the epigastric area however chips to sometimes his left lateral thoracic cavity and shoulder. States pain is severe and sharp. He denies any cough or shortness of breath. The ROS documented in this emergency department record has been reviewed and confirmed by me. Those systems with pertinent positive or negative responses have been documented in the HPI. All other systems are other negative and/or noncontributory. PHYSICAL EXAM: General Impression: Alert and oriented x3, not in acute distress HEENT: Normocephalic atraumatic, extra-ocular movements intact, pupils equal and reactive to light bilaterally, mucous membranes moist. Cardiovascular: Heart regular rate and rhythm Chest: Able to complete full sentences, no retractions, no tachypnea Abdomen: abdomen soft, non-tender, non-distended, no organomegaly Musculoskeletal: Pulses present and equal in all extremities, no peripheral edema Motor: no focal deficits noted Neurological: CN II-XII grossly intact, no focal motor or sensory deficits noted Skin: Intact with no visualized rashes Psych: Normal affect and mood ED course: 39-year-old male presents with chest and abdominal pain. All signs upon arrival are within acceptable limits. Patient's chart was reviewed. Was here 2 days ago were he had normal labs and normal imaging. He had a normal abdominal ultrasound and chest x-ray 2 days ago. Laboratory evaluation obtained. CBC, coag panel, metabolic panel, urinalysis is negative. CT of the chest abdomen pelvis with contrast was obtained showing no acute processes. Patient is very anxious about his symptoms. He does have an appointment with GI. Patient reassured that there isn't a significant processes occurring at this time. He is agreeable for discharge with pain medications. He is urged to keep his GI appointment. EKG interpretation: Ventricular rate 60, normal sinus rhythm, PA interval 120, QRS 86, QTC 391. No PA prolongation, no QTC prolongation, no ST or T-wave changes noted. . Overall, this EKG is unremarkable - Related Data Home Medications Medication Instructions Recorded Confirmed Cetirizine HCl 10 mg PO DAILY 06/03/20 06/03/20 Omeprazole Magnesium [PriLOSEC OTC] 20 mg PO DAILY 06/03/20 06/03/20 Previous Rx's Medication Instructions Recorded Sucralfate [Carafate] 1 gm PO ACHS #28 tablet 06/03/20 oxyCODONE HCL/ACETAMINOPHEN 1 tab PO Q6HR PRN 3 Days #12 tab 06/05/20 [Percocet 5-325 mg] Allergies Allergy/AdvReac Type Severity Reaction Status Date / Time latex Allergy Rash/Hives Verified 06/05/20 16:05 Review of Systems ROS Statement: Those systems with pertinent positive or pertinent negative responses have been documented in the HPI. ROS Other: All systems not noted in ROS Statement are negative. Past Medical History Past Medical History: Asthma, GERD/Reflux, Renal Disease Additional Past Medical History / Comment(s): Contact urticaria, gastritis, nephrolithiasis-passed stones on his own, seasonal allergies. History of Any Multi-Drug Resistant Organisms: None Reported Past Surgical History: Appendectomy Past Anesthesia/Blood Transfusion Reactions: Unable to Obtain Additional Past Anesthesia/Blood Transfusion Reaction / Comment(s): Pt has never had any surgical procedures. Past Psychological History: No Psychological Hx Reported Smoking Status: Never smoker Past Alcohol Use History: Rare Past Drug Use History: None Reported - Past Family History Father Family Medical History: Diabetes Mellitus Additional Family Medical History / Comment(s): Father had gallbladder disease and appendicitis. Mother Additional Family Medical History / Comment(s): Mother has back problems. General Exam Limitations: no limitations Course Vital Signs 06/05/20 16:05 Temperature 97.9 F Pulse Rate 77 Respiratory 16 Rate Blood Pressure 116/82 O2 Sat by Pulse 99 Oximetry Medical Decision Making - Lab Data Result diagrams: 06/05/20 16:32 06/05/20 16:32 Lab Results 06/05/20 06/05/20 06/05/20 Range/Units 16:32 16:32 16:32 WBC 6.6 (3.8-10.6) k/uL RBC 5.58 (4.30-5.90) m/uL Hgb 16.2 (13.0-17.5) gm/dL Hct 48.7 (39.0-53.0) % MCV 87.3 (80.0-100.0) fL MCH 29.0 (25.0-35.0) pg MCHC 33.3 (31.0-37.0) g/dL RDW 12.8 (11.5-15.5) % Plt Count 268 (150-450) k/uL Neutrophils % 82 % Lymphocytes % 11 % Monocytes % 4 % Eosinophils % 0 % Basophils % 0 % Neutrophils # 5.4 (1.3-7.7) k/uL Lymphocytes # 0.8 L (1.0-4.8) k/uL Monocytes # 0.3 (0-1.0) k/uL Eosinophils # 0.0 (0-0.7) k/uL Basophils # 0.0 (0-0.2) k/uL PT 10.3 (9.0-12.0) sec INR 1.0 (<1.2) APTT 24.8 (22.0-30.0) sec Sodium (137-145) mmol/L Potassium (3.5-5.1) mmol/L Chloride (98-107) mmol/L Carbon Dioxide (22-30) mmol/L Anion Gap mmol/L BUN (9-20) mg/dL Creatinine (0.66-1.25) mg/dL Est GFR (CKD-EPI)AfAm (>60 ml/min/1.73 sqM) Est GFR (CKD-EPI)NonAf (>60 ml/min/1.73 sqM) Glucose (74-99) mg/dL Calcium (8.4-10.2) mg/dL Total Bilirubin (0.2-1.3) mg/dL AST (17-59) U/L ALT (4-49) U/L Alkaline Phosphatase (38-126) U/L Total Protein (6.3-8.2) g/dL Albumin (3.5-5.0) g/dL Lipase (23-300) U/L Urine Color Light Yellow Urine Appearance Cloudy (Clear) Urine pH 7.5 (5.0-8.0) Ur Specific [place] 1.019 (1.001-1.035) Urine Protein Negative (Negative) Urine Glucose (UA) Negative (Negative) Urine Ketones Negative (Negative) Urine Blood Negative (Negative) Urine Nitrite Negative (Negative) Urine Bilirubin Negative (Negative) Urine Urobilinogen <2.0 (<2.0) mg/dL Ur Leukocyte Esterase Negative (Negative) Urine RBC 1 (0-5) /hpf Urine WBC 1 (0-5) /hpf Amorphous Sediment Rare H (None) /hpf Urine Mucus Rare H (None) /hpf 06/05/20 Range/Units 16:32 WBC (3.8-10.6) k/uL RBC (4.30-5.90) m/uL Hgb (13.0-17.5) gm/dL Hct (39.0-53.0) % MCV (80.0-100.0) fL MCH (25.0-35.0) pg MCHC (31.0-37.0) g/dL RDW (11.5-15.5) % Plt Count (150-450) k/uL Neutrophils % % Lymphocytes % % Monocytes % % Eosinophils % % Basophils % % Neutrophils # (1.3-7.7) k/uL Lymphocytes # (1.0-4.8) k/uL Monocytes # (0-1.0) k/uL Eosinophils # (0-0.7) k/uL Basophils # (0-0.2) k/uL PT (9.0-12.0) sec INR (<1.2) APTT (22.0-30.0) sec Sodium 140 (137-145) mmol/L Potassium 4.3 (3.5-5.1) mmol/L Chloride 103 (98-107) mmol/L Carbon Dioxide 29 (22-30) mmol/L Anion Gap 8 mmol/L BUN 17 (9-20) mg/dL Creatinine 0.80 (0.66-1.25) mg/dL Est GFR (CKD-EPI)AfAm >90 (>60 ml/min/1.73 sqM) Est GFR (CKD-EPI)NonAf >90 (>60 ml/min/1.73 sqM) Glucose 109 H (74-99) mg/dL Calcium 10.4 H (8.4-10.2) mg/dL Total Bilirubin 0.7 (0.2-1.3) mg/dL AST 21 (17-59) U/L ALT 21 (4-49) U/L Alkaline Phosphatase 65 (38-126) U/L Total Protein 8.2 (6.3-8.2) g/dL Albumin 5.1 H (3.5-5.0) g/dL Lipase 73 (23-300) U/L Urine Color Urine Appearance (Clear) Urine pH (5.0-8.0) Ur Specific [place] (1.001-1.035) Urine Protein (Negative) Urine Glucose (UA) (Negative) Urine Ketones (Negative) Urine Blood (Negative) Urine Nitrite (Negative) Urine Bilirubin (Negative) Urine Urobilinogen (<2.0) mg/dL Ur Leukocyte Esterase (Negative) Urine RBC (0-5) /hpf Urine WBC (0-5) /hpf Amorphous Sediment (None) /hpf Urine Mucus (None) /hpf Disposition Clinical Impression: Abdominal pain Disposition: HOME SELF-CARE Condition: Good Instructions (If sedation given, give patient instructions): Abdominal Pain (ED) Prescriptions: oxyCODONE HCL/ACETAMINOPHEN [Percocet 5-325 mg] 1 tab PO Q6HR PRN 3 Days #12 tab PRN Reason: Pain Is patient prescribed a controlled substance at d/c from ED?: Yes If prescribed controlled substance>3 days was MAPS reviewed?: Prescribed <3 Days Referrals: Marilyn Haywood MD [STAFF PHYSICIAN] - 1-2 days Time of Disposition: 18:33
[2020-06-05 17:16] LABS: Basophils % (A) 0 %; Eosinophils % (A) 0 %; HCT 48.7 % (39.0-53.0); HGB 16.2 gm/dL (13.0-17.5); Lymphocytes # (A) 0.8 k/uL (1.0-4.8); Lymphocytes % (A) 11 %; MCHC 33.3 g/dL (31.0-37.0); MCV 87.3 fL (80.0-100.0); Mean Platelet Volume 7.9; Monocytes # (A) 0.3 k/uL (0-1.0); Monocytes % (A) 4 %; Neutrophils # (A) 5.4 k/uL (1.3-7.7); Neutrophils % (A) 82 %; Platelet Count 268 k/uL (150-450); RBC 5.58 m/uL (4.30-5.90); RDW 12.8 % (11.5-15.5); WBC 6.6 k/uL (3.8-10.6)
[2020-06-05 17:17] LABS: Amorphous Sediment,Urine Rare /hpf; Appearance,Urine Cloudy (Clear); Bilirubin,Urine Negative (Negative); Blood,Urine Negative (Negative); Color,Urine Light Yellow; Glucose,Urine (UA) Negative (Negative); Ketones,Urine Negative (Negative); Leukocyte Esterase,Urine Negative (Negative); Mucus,Urine Rare /hpf; Nitrite,Urine Negative (Negative); PH, Urine 7.5 (5.0-8.0); Partial Thromboplastin Time 24.8 sec (22.0-30.0); Protein,Urine Negative (Negative); Prothrombin Time 10.3 sec (9.0-12.0); RBC,Urine 1 /hpf (0-5); Specific Gravity,Urine 1.019 (1.001-1.035); Urobilinogen,Urine <2.0 mg/dL (<2.0); WBC,Urine 1 /hpf (0-5)
[2020-06-05 17:19] LABS: ALT 21 U/L (4-49); AST 21 U/L (17-59); African American GFR (CKD) >90 (>60 ml/min/1.73 sqM); Albumin 5.1 g/dL (3.5-5.0); Alkaline Phosphatase 65 U/L (38-126); Anion Gap 8 mmol/L; Blood Urea Nitrogen 17 mg/dL (9-20); Calcium 10.4 mg/dL (8.4-10.2); Carbon Dioxide 29 mmol/L (22-30); Chloride 103 mmol/L (98-107); Glucose 109 mg/dL (74-99); Non-African American GFR(CKD) >90 (>60 ml/min/1.73 sqM); Potassium 4.3 mmol/L (3.5-5.1); Sodium 140 mmol/L (137-145); Total Bilirubin 0.7 mg/dL (0.2-1.3); Total Protein 8.2 g/dL (6.3-8.2)
--- NOTE | 2020-06-05 18:05 | CT ---
EXAMINATION TYPE: CT ChestAbdPelvis w con DATE OF EXAM: 06/05/2020 COMPARISON: CT abdomen pelvis 03/29/2017 HISTORY: Left sided epigastric and chest pain x2 months. CT DLP: 835.7 mGycm Automated exposure control for dose reduction was used. CONTRAST: Performed with IV Contrast, patient injected with 100ml mL of Isovue 300. Images were obtained from the thoracic inlet to the floor the pelvis with IV contrast. The lungs are clear of infiltrate. There is no evidence of a pulmonary mass. There is no pleural effu john. Heart size is normal. There is no pericardial effusion. There is no mediastinal adenopathy. The re are no hilar masses. There is calcified subcarinal lymph nodes. There is small splenic calcified granuloma. Spleen stomach pancreas liver gallbladder appear intact. Bile ducts are not dilated. There is no adrenal mass. The kidneys show satisfactory contrast opacific ation. There is no hydronephrosis. Ureters are not dilated. Delayed images show normal renal excretio n. There is no retroperitoneal adenopathy. Bladder distends smoothly. There is no inguinal hernia. Th ere is no free fluid in the pelvis. Appendix is not seen. There is no sign of thickened appendix. There is no mesenteric edema. There is no ascites or free air. There is no bowel obstruction. The tho racic and lumbar vertebra have normal spacing and alignment. Posterior elements are intact. Bony pelv is is intact. Hip joints are intact. The ribs appear normal. Sternum is normal. IMPRESSION: Negative CT scan abdomen and pelvis. There is apparent appendectomy compared to old exam.
[2020-06-05 18:44] VITALS: BP 137/74; PULSE 78; TEMP 97.8
== END 2020-06-05 18:43 | disposition home or self-care (01) ==
LOC: EC 15:55
DX: R10.13 Epigastric pain (principal); R07.9 Chest pain, unspecified; Z91.040 Latex allergy status; K21.9 Gastro-esophageal reflux disease without esophagitis; Z79.899 Other long term (current) drug therapy; Z90.49 Acquired absence of other specified parts of digestive tract; Z87.442 Personal history of urinary calculi
CPT/HCPCS: 36415; 93005; 80053; 83690; 85025; 85610; 85730; 81001; 71260; 74177; 99284; Q9967

== ENCOUNTER 2020-06-22 12:25 | Day surgery (SDC) | payer BC ==
[2020-06-18 15:00] VITALS: BMI 22.1
[~2020-06-22 12:25] MED LIST: LACTATED RINGERS 1,000 ML IV SCH; LIDOCAINE 1% (10MG/ML) FOR IV START INTRADERMA PRN
[2020-06-22 12:54] VITALS: RESP 16; TEMP 98.4
[2020-06-22] MEDS ORDERED: LIDOCAINE 1% INJ 10MG/ML (20 ML MDV) ONE (13:38)
[2020-06-22] MEDS ORDERED: fentaNYL (PF) 50 MCG/ML 2 ML AMP ONE (13:38)
[2020-06-22] MEDS ORDERED: PROPOFOL 10 MG/ML 20 ML VIAL IV ONE (13:38)
--- NOTE | 2020-06-22 14:07 | P.PCN ---
Date of Procedure: 06/22/20 Description of Procedure: BRIEF HISTORY: Patient is a 39-year-old male presenting for EGD for evaluation of epigastric pain and GERD. Patient was seen in the GI clinic. Continuing on PPI therapy dicyclomine was added to his regimen. He reports frequent episodes of epigastric pain and reflux. PROCEDURE PERFORMED: Esophagogastroduodenoscopy with biopsy. PREOPERATIVE DIAGNOSIS: Epigastric abdominal pain, GERD. ESTIMATED BLOOD LOSS: Minimal. IV sedation per anesthesia. PROCEDURE: After informed consent was obtained, the patient was brought into the endoscopy unit. IV sedation was administered by Anesthesia under continuous monitoring. Initially the Olympus GIF-190 video endoscope was inserted into the mouth. Esophagus intubated without any difficulty. It was gradually advanced into the stomach and duodenum and carefully examined. The bulb and the second part of the duodenum appeared normal, with biopsies taken to rule out celiac sprue. The scope at this time was withdrawn to the stomach, adequately insufflated with air, and upon careful examination, mucosa of the antrum, body, cardia and the fundus appeared normal, with mild scattered erythema in the antrum and body suggestive of mild gastritis of biopsies and biopsied. The scope was then withdrawn into the esophagus. The GE junction was located at 39 cm from the incisors. The esophagus appeared normal, with mid esophageal biopsies taken. There were no erosions or ulcerations seen and the patient tolerated the pro cedure well. IMPRESSION: 1. Mild gastritis. 2. Biopsies of the duodenum, antrum and body, GE junction and mid esophagus. RECOMMENDATIONS: The findings of this examination were discussed with the patient and his girlfriend. Okay to resume diet. Okay to continue medications. Would recommend following up in the GI clinic for continued management and results of biopsies.
[2020-06-22 14:12] VITALS: BP 129/81; PULSE 82
== END 2020-06-22 14:48 | disposition home or self-care (01) ==
LOC: ORWHC2ENDO 12:25
PROVIDERS: ATTEND Internal Medicine
DX: K29.50 Unspecified chronic gastritis without bleeding (principal); K21.9 Gastro-esophageal reflux disease without esophagitis; J45.909 Unspecified asthma, uncomplicated; Z91.040 Latex allergy status; Z91.09 Other allergy status, other than to drugs and biological substances; Z79.899 Other long term (current) drug therapy; Z79.891 Long term (current) use of opiate analgesic; Z90.49 Acquired absence of other specified parts of digestive tract
CPT/HCPCS: 43239; J2001; J3010; J2704; 88305; 88342